=== PATIENT | female | born 1990 | race Caucasian/White ===

== ENCOUNTER 2017-11-10 06:01 | Inpatient (IN) | payer BC, SELFPAY ==
[2017-11-10] MEDS ORDERED: Butorphanol Tartrate 1 MG/ML VIAL ONE (06:20)
[2017-11-10] MEDS: Lactated Ringer's 1,000 ML IV SCH ×2 (06:20→08:25)
[2017-11-10 06:31] VITALS: BMI 29.2
[2017-11-10] MEDS ORDERED: Acetaminophen 500 MG TAB PO PRN (06:40)
[2017-11-10] MEDS ORDERED: Promethazine HCl 25 MG/ML VIAL IM PRN ×2 (06:41→07:58)
[2017-11-10] MEDS ORDERED: Butorphanol Tartrate 1 MG/ML VIAL SLOW IVP PRN (06:41)
[2017-11-10] MEDS ORDERED: Ondansetron HCl/PF 4 MG/2 ML Vial IVP PRN ×3 (06:41→10:26)
[2017-11-10 06:48] LABS: Hemoglobin 12.2 g/dL (12.0-16.0); Mean Corpuscular HGB CONC 36.1 g/dL (32.0-36.0); Mean Corpuscular Hemoglobin 33.4 pg (27.0-31.0); Mean Corpuscular Volume 92.7 fL (78.0-98.0); Mean Platelet Volume 7.8 fL (7.4-10.4); Platelet Count 243 thou/uL (130-400); RBC Distribution Width 12.9 % (11.5-14.5); Red Blood Cell (RBC) Count 3.65 mill/uL (4.20-5.40); White Blood Cell (WBC) Count 14.3 thou/uL (4.8-10.8)
[2017-11-10] MEDS ORDERED: DISCONTINUE ALL PREVIOUS NARCOTICS FS SCH (07:15)
[2017-11-10] MEDS ORDERED: Bupivacaine 0.5% 20 ML, fentaNYL Citrate/PF 400 MCG in Sodium Chloride 0.9% 72 ML EPIDURAL SCH (07:15)
[2017-11-10 07:30] LABS: Syphilis Antibody Nonreactive (Nonreactive); Syphilis Antibody Index 0.04 S/CO (<1.00 Non-Reactive)
[2017-11-10 07:31] LABS: HBSAg Index 0.17 S/CO (0-0.99); Hep B Surf Ag Non-Reactive S/CO (NonReactive)
[2017-11-10] MEDS ORDERED: Lactated Ringer's 500 ML IV PRN (07:58)
[2017-11-10] MEDS ORDERED: Naloxone HCl 0.4 mg/ml Vial IVP PRN ×2 (07:58)
[2017-11-10] MEDS ORDERED: Eucerin (Mineral Oil/Petrolatum,White) 30 gm Jar TOP PRN (07:58)
[2017-11-10] MEDS ORDERED: diphenhydrAMINE 50 MG/ML VIAL IVP PRN (07:58)
[2017-11-10] MEDS ORDERED: ePHEDrine/0.9% NaCl/PF SYRINGE 50 mg/10 ml SLOW IVP PRN (07:58)
[2017-11-10] MEDS ORDERED: Acetaminophen 325 MG TAB PO PRN (07:58)
[2017-11-10] MEDS ORDERED: Communication Order-Pharmacy FS SCH (08:00)
[2017-11-10] MEDS ORDERED: fentaNYL Citrate/PF 400 MCG, Bupivacaine 0.5% 20 ML in Sodium Chloride 0.9% 72 ML EPIDURAL SCH (08:00)
[2017-11-10] MEDS ORDERED: NS / Oxytocin 40 units/1000ml 1,000 ML ONE (09:07)
[2017-11-10] MEDS ORDERED: Lidocaine 1% (PF) 30 ML VIAL ONE (09:07)
[2017-11-10] MEDS ORDERED: Bisacodyl 10 MG SUPP PR PRN (10:26)
[2017-11-10] MEDS ORDERED: diphenhydrAMINE 25 MG CAP PO PRN (10:26)
[2017-11-10] MEDS ORDERED: Acetaminophen/Codeine 30-300mg Tablet PO PRN ×2 (10:26)
[2017-11-10] MEDS ORDERED: Benzocaine/Menthol 20-0.5% 60 ML CAN TOP PRN (10:26)
[2017-11-10] MEDS ORDERED: Milk Of Magnesia 30 ML UDCUP PO PRN (10:26)
[2017-11-10] MEDS ORDERED: Preparation H Ointment 28 GM TUBE PR PRN (10:26)
[2017-11-10] MEDS ORDERED: Lanolin Ointment 7 GM TUBE TOP PRN (10:26)
[2017-11-10] MEDS ORDERED: Zolpidem Tartrate 5 MG TAB PO PRN (10:26)
[2017-11-10] MEDS ORDERED: Adacel (T-DAP) 0.5 ML VIAL IM ONE (10:26)
[2017-11-10] MEDS ORDERED: NS / Oxytocin 40 units/1000ml 1,000 ML IV SCH (10:30)
[2017-11-10] MEDS ORDERED: Lidocaine 2% PF Inj 2 ML VIAL ONE (12:00)
[2017-11-10] MEDS ORDERED: ePHEDrine/0.9% NaCl/PF SYRINGE 50 mg/10 ml ONE (12:00)
[2017-11-10] MEDS: Ibuprofen 800 MG TAB PO SCH ×2 (13:31→21:43)
[2017-11-10] MEDS: Ferrous Sulfate 325 MG TAB PO SCH (18:14)
[2017-11-10] MEDS: Docusate Calcium (SURFAK) 240 MG CAP PO SCH (21:43)
[2017-11-11] MEDS: Ibuprofen 800 MG TAB PO SCH ×2 (05:03→13:23)
[2017-11-11 05:31] LABS: Hemoglobin 11.1 g/dL (12.0-16.0); Mean Corpuscular HGB CONC 34.1 g/dL (32.0-36.0); Mean Corpuscular Hemoglobin 32.7 pg (27.0-31.0); Mean Corpuscular Volume 95.9 fL (78.0-98.0); Mean Platelet Volume 8.1 fL (7.4-10.4); Platelet Count 225 thou/uL (130-400); Red Blood Cell (RBC) Count 3.39 mill/uL (4.20-5.40); White Blood Cell (WBC) Count 15.9 thou/uL (4.8-10.8)
[2017-11-11 07:54] VITALS: BP 104/62; TEMP 97.9
[2017-11-11] MEDS ORDERED: Prenatal Vitamin 1 TAB PO SCH (09:00)
[2017-11-11] MEDS: Ferrous Sulfate 325 MG TAB PO SCH (09:04)
[2017-11-11] MEDS: Docusate Calcium (SURFAK) 240 MG CAP PO SCH (09:04)
== END 2017-11-11 18:25 | disposition home or self-care (01) | DRG 775 ==
LOC: L&D/OP 06:01 → L&D 06:21 → 3SW 13:58
PROVIDERS: ADMIT Obstetrics & Gynecology; ATTEND Obstetrics & Gynecology
PROC: 10E0XZZ Delivery of Products of Conception, External Approach (ICD-10-PCS; principal; 2017-11-10)
PROC: 4A1HXCZ Monitoring of Products of Conception, Cardiac Rate, External Approach (ICD-10-PCS; 2017-11-10)
PROC: 4A1HXFZ Monitoring of Products of Conception, Cardiac Rhythm, External Approach (ICD-10-PCS; 2017-11-10)
PROC: 3E0S3BZ Introduction of Anesthetic Agent into Epidural Space, Percutaneous Approach (ICD-10-PCS; 2017-11-10)
PROC: 00HU33Z Insertion of Infusion Device into Spinal Canal, Percutaneous Approach (ICD-10-PCS; 2017-11-10)
DX: O76 Abnormality in fetal heart rate and rhythm complicating labor and delivery (principal); Z3A.37 37 weeks gestation of pregnancy; Z37.0 Single live birth; Z91.040 Latex allergy status
CPT/HCPCS: 36415; 51702; 85027; 86780; 86850; 86900; 86901; 87340; 90715; 99285; J0595; J2001; J3010; J3490; J7050